=== PATIENT | female | born 1960 | race Two or more races ===

== ENCOUNTER 2018-10-15 16:21 | Emergency (ER) | payer BC ==
[~2018-10-15] VITALS: Ht 157.5 cm; Wt 68.0 kg
[2018-10-15 16:35] VITALS: BP 158/69
[2018-10-15] MEDS ORDERED: methylPREDNISolone SOD SUCC 125 MG/2 ML VL IM ONE (18:45)
[2018-10-15] MEDS ORDERED: KETOROLAC TROMETH 60MG/2ML VIAL IM ONE (18:45)
== END 2018-10-15 19:06 | disposition home or self-care (01) ==
LOC: ER 16:21
DX: M54.32 Sciatica, left side (principal)
CPT/HCPCS: 96372; 99283; J1885; J2930